=== PATIENT | male | born 1970 | race Caucasian/White ===

== ENCOUNTER 2016-09-09 17:05 | Emergency (ER) | payer MEDICAID ==
[2016-09-09] MEDS ORDERED: KETOROLAC TROMETHAMINE 60 MG/2 ML SDV IM ONE (18:19)
[2016-09-09] MEDS ORDERED: PREDNISONE 20 MG TABLET PO ONE (18:19)
--- NOTE | 2016-09-09 18:25 | ER Document Report ---
ED Neck/Back Problem - General Stated Complaint: FALL BACK PAIN Time seen by provider: 18:20 Mode of Arrival: Ambulatory Information source: Patient TRAVEL OUTSIDE OF THE [place] IN LAST 30 DAYS: No - HPI Patient complains to provider of: Pain, Lower back Onset: Other - Chronic with exacerbation today Where: Outdoors Onset: Chronic Timing: Still present Quality of pain: Achy Severity: Severe Pain Level: 5 Recent injury: Possibly Associated symptoms: Like prior neck/back pain, Radiation to leg. denies: Sweaty Exacerbated by: Movement of trunk Relieved by: Nothing Similar symptoms previously: Yes Notes: Patient is a 46-year-old male presenting to the emergency room complaining of low back pain radiating down his right leg, he has a chronic history of low back pain and in fact has been seen in this emergency room on multiple occasions for similar symptoms, today he states that he was walking his dog in his dog went to 6 Rolled on him causing him to feel a popping sensation in his back and causing him increased pain, patient reports that he has not been in pain management for the past 4 months because he wishes to get off of narcotic medication, he states that he sometimes medications through his primary care provider at [facility], reports initially that he's had 2 back surgeries , and then he reports that he's had 4 back surgeries later in our conversation, when I asked him what type of surgery he has had he simply says "disks", patient denies any bowel or bladder dysfunction, he does report some pain and tingling sensation down the right leg - Related Data Allergies/Adverse Reactions: No Known Allergies Allergy (Verified 02/14/16 10:08) Past Medical History - General Information source: Patient - Social History Smoking Status: Unknown if Ever Smoked Family History: Reviewed & Not Pertinent - Past Medical History Cardiac Medical History: Reports: Hx Hypertension Past Surgical History: Reports: Hx Abdominal Surgery, Hx Orthopedic Surgery - back surgery x 3, right ankle - Immunizations Immunizations up to date: Yes Hx Diphtheria, Pertussis, Tetanus Vaccination: Yes Review of Systems - Review of Systems Constitutional: No symptoms reported EENT: No symptoms reported Cardiovascular: No symptoms reported Respiratory: No symptoms reported Gastrointestinal: No symptoms reported Genitourinary: No symptoms reported Male Genitourinary: No symptoms reported Musculoskeletal: See HPI Skin: No symptoms reported Hematologic/Lymphatic: No symptoms reported Neurological/Psychological: No symptoms reported -: Yes All other systems reviewed and negative Physical Exam - Vital signs Interpretation: Normal - General General appearance: Appears well, Alert - HEENT Head: Normocephalic, Atraumatic Eyes: Normal Pupils: PERRL - Respiratory Respiratory status: No respiratory distress Chest status: Nontender Breath sounds: Normal Chest palpation: Normal - Cardiovascular Rhythm: Regular Heart sounds: Normal auscultation Murmur: No - Abdominal Inspection: Normal Distension: No distension Bowel sounds: Normal Tenderness: Nontender Organomegaly: No organomegaly - Back Back: Normal, Nontender - Extremities General upper extremity: Normal inspection, Nontender, Normal color, Normal ROM , Normal temperature General lower extremity: Normal inspection, Nontender, Normal color, Normal ROM , Normal temperature, Normal weight bearing. No: Shaheen's sign Notes: Distal sensation and motor is intact bilaterally with 2+ DP pulses and good strength in both legs, brisk capillary refill - Neurological Neuro grossly intact: Yes Cognition: Normal Orientation: AAOx4 Mccaskill Coma Scale Eye Opening: Spontaneous Mccaskill Coma Scale Verbal: Oriented Shaunna Coma Scale Motor: Obeys Commands Shaunna Coma Scale Total: 15 Speech: Normal Motor strength normal: LUE, RUE, LLE, RLE Sensory: Normal - Psychological Associated symptoms: Normal affect, Normal mood - Skin Skin Temperature: Warm Skin Moisture: Dry Skin Color: Normal Course - Re-evaluation Re-evalutation: 09/09/16 18:26 Patient with a history of chronic low back pain, has been seen in this emergency room on several occasions, I am told by nursing staff that he is called out at least 4-5 times requesting pain medication since being in the emergency room prior to my evaluation, he has told me that he has not been in pain management for at least 4 months and he has not been taking narcotics for that period of time, however a review of previous charts shows that patient has been saying the same thing for multiple visits previously, and a review of the [place] controlled substances website that he has had multiple narcotic pain medication prescriptions filled, I explained to patient that I would be more than happy to treat his back pain with nonnarcotics today and provided him with a Toradol injection and by mouth steroids, as well as a prescription for Motrin 600 mg and steroids, I attempted to gather further information from patient regarding his back surgeries, which he initially said he had to, then he said he had for later in the conversation, when I asked him what type of surgeries he had he simply said "discs", then he proceeded to sit up in the bed quite quickly as a matter fact, and pointed to all of his extremities and the various areas that he's had surgery, he was moving quite rapidly and did not appear in any pain at that time, he was touching his toes without difficulty pointing to areas that he's had surgery, I once again explained to patient that the emergency room is not the appropriate place to have his chronic low back pain treated and that he would be provided with nonnarcotic medication for the treatment of back pain and he should further follow-up with his primary care provider, orthopedics or neurosurgery, physical therapy, or pain management if his back continues to cause him concern, patient appeared to be unhappy with this explanation and plan but eventually acknowledges understanding Discharge - Discharge Clinical Impression: Low back pain Qualifiers: Chronicity: chronic Back pain laterality: right Sciatica presence: with sciatica Sciatica laterality: sciatica of right side Qualified Code(s): M54.41 - Lumbago with sciatica, right side; G89.29 - Other chronic pain Condition: Stable Disposition: HOME, SELF-CARE Instructions: Low Back Pain ([facility]) Additional Instructions: It is important for you to follow appropriate channels to have your chronic back pain taken care of appropriately. This includes following up with your primary care provider, an orthopedic surgeon specializes in spine or a neurosurgeon, and possibly pain management if these avenues do not help your back pain. Gentle stretching with warm compresses and physical therapy can also help. Return to the emergency room if symptoms worsen or any additional concerns. Prescriptions: Ibuprofen [Motrin 600 Mg Tablet] 600 mg PO TID #30 tablet Methylprednisolone [Medrol Dosepack (4 mg/Tab) 21 Tab/Dosepak] 4 mg PO ASDIR PRN #21 tab.ds.pk PRN Reason:
[2016-09-09 18:39] VITALS: BP 156/118
== END 2016-09-09 18:50 | disposition home or self-care (01) ==
LOC: ER 17:05
DX: M54.41 Lumbago with sciatica, right side (principal); G89.29 Other chronic pain; M54.9 Dorsalgia, unspecified; M54.5 Low back pain; M79.604 Pain in right leg
CPT/HCPCS: 99283; 96372; J1885; J7512

== ENCOUNTER 2019-07-06 13:52 | Emergency (ER) | payer SELFPAY ==
[2019-07-06] MEDS ORDERED: OXYCODONE-ACETAMINOPHEN 5-325 MG TABLET PO ONE ×2 (15:13→20:45)
[2019-07-06] MEDS ORDERED: CYCLOBENZAPRINE HCL 10 MG TABLET PO ONE (15:13)
--- NOTE | 2019-07-06 15:16 | ER Document Report ---
HPI - HPI Context: Patient is a 48-year-old male who presents to the emergency department with a chief complaint of left hip pain. Patient did arrive to the emergency department via EMS. EMS did start an IV and give 30 mg of Toradol. Patient reports this is not helped with his discomfort. Patient reports he does have a history of herniated disc in his back and multiple back and neck surgeries. Patient reports he is not currently having back pain. Patient reports this is all in his hip. Patient reports he is felt a sharp discomfort in his left hip over the past week and today while walking out of his bedroom he felt a significantly increased pain to the left hip. Patient reports this pain does radiate all the way down into his toes on his left leg. Patient reports that sharp and stabbing in nature. Patient reports a week he has been attempting ibuprofen without relief. Patient denies an injury or a fall. Patient reports the pain is significantly worse when he attempts to move at all. <OCTAVIA REYES - Last Filed: 07/06/19 21:32> <SOFY LUGO - Last Filed: 07/07/19 07:49> - HPI Time Seen by Provider: 07/06/19 15:04 Past Medical History - General Information source: Patient - Social History Lives with: Family Family History: Reviewed & Not Pertinent - Past Medical History Cardiac Medical History: Reports: Hx Hypertension Pulmonary Medical History: Reports: None EENT Medical History: Reports: None Neurological Medical History: Reports: None Endocrine Medical History: Reports: None Renal/ Medical History: Reports: None. Denies: Hx Peritoneal Dialysis Malignancy Medical History: Reports None GI Medical History: Reports: None Musculoskeletal Medical History: Reports None Skin Medical History: Reports None Psychiatric Medical History: Reports: None Traumatic Medical History: Reports: None Infectious Medical History: Reports: None Past Surgical History: Reports: Hx Abdominal Surgery, Hx Orthopedic Surgery - back surgery x 3, right ankle - Immunizations Immunizations up to date: Yes Hx Diphtheria, Pertussis, Tetanus Vaccination: Yes <OCTAVIA REYES - Last Filed: 07/06/19 21:32> - General Information source: Patient - Social History Smoking Status: Never Smoker <OSFY LUGO - Last Filed: 07/07/19 07:49> Vertical Provider Document - CONSTITUTIONAL Agree With Documented VS: Yes Exam Limitations: No Limitations General Appearance: No Apparent Distress - INFECTION CONTROL TRAVEL OUTSIDE OF THE [place] IN LAST 30 DAYS: No - HEENT HEENT: Atraumatic, Normocephalic, PERRLA - NECK Neck: Normal Inspection - RESPIRATORY Respiratory: Breath Sounds Normal, No Respiratory Distress - CARDIOVASCULAR Cardiovascular: Regular Rate, Regular Rhythm - GI/ABDOMEN Gastrointestinal: Abdomen Soft, Abdomen Non-Tender, Normal Bowel Sounds - BACK Back: Normal Inspection - MUSCULOSKELETAL/EXTREMETIES Notes: Tenderness noted with palpation to the left iliac crest. There is no tenderness to the femur or lower extremity. Patient is able to wiggle his toes although he does report this induces pain to the left hip. Patient has a strong dorsalis pedis and posterior tibial pulse +2. Patient is unable to move his left leg due to significant pain. - NEURO Level of Consciousness: Awake, Alert, Appropriate - DERM Integumentary: Warm, Dry, No Rash <OCTAVIA REYES - Last Filed: 07/06/19 21:32> Course - Re-evaluation Re-evalutation: 07/06/19 17:24 Patient was brought back to room 31. Patient remains in a reclining chair. Patient reports he is unable to get over from the stretcher as it does hurt too much. Patient was able to sit upright in the chair which did induce pain to the left hip. Patient reports it feels like it is a ball and socket problem in the left hip. Patient continues to deny back pain. Patient did have lumbar midline tenderness. Patient reports he has had hardware in his lower back and there has been no new or worsening symptoms. Patient states once again he is not having back pain. Patient denies numbness or tingling down his leg. Patient denies loss of bowel or bladder. 07/06/19 17:54 I did consult with Dr. Hoff supervising physician who recommends that if the patient cannot bear weight to obtain a CAT scan of the left hip. I will give the patient a dose of medication. CT ordered. 07/06/19 20:00 I did discuss the CT exam results with the patient. Patient reports he has a history of kidney stones and that this feels completely different. Patient reports he feels a sharp or burning discomfort to his left hip. Patient denies urinary symptoms. Patient continues to deny back pain. Patient requesting pain medication. I did discuss the results with Dr. Hoff who will evaluate the patient. 07/06/19 21:32 Report given to Sofy Lugo PA-C who will watch for the results of the MRI. If the MRI is negative per Dr. Hoff the plan is to discharge the patient with Ortho follow-up and crutches. Patient is to not weight-bear until follow-up with orthopedics. - Vital Signs Vital signs: Temp Pulse Resp BP Pulse Ox 88 20 162/82 H 98 07/06/19 14:43 07/06/19 14:43 07/06/19 14:43 07/06/19 14:43 - Diagnostic Test Radiology reviewed: Reports reviewed Radiology results interpreted by me: 07/06/19 15:56 Hip X-Ray 07/06/19 15:12 IMPRESSION: NEGATIVE STUDY OF THE LEFT HIP AND PELVIS. NO EXPLANATION FOR PAIN. <OCTAVIA REYES - Last Filed: 07/06/19 21:32> - Re-evaluation Re-evalutation: MRI results showing severe stenosis at L5 and S1. Degenerative changes otherwise. No cauda equina. No fever. No epidural abscess. Hip MRI is normal. I discussed results with patient and with Dr. Marsh. Patient already has a spinal surgeon in [place] that he has seen previously and had surgery within the past, he states he will call them in the morning with his MRI report. Provided with steroids and pain medication per Dr. Marsh's recommendation. Discussed return precautions. Patient states appreciation and agreement. - Vital Signs Vital signs: Temp Pulse Resp BP Pulse Ox 97.6 F 71 18 136/102 H 91 L 07/06/19 23:47 07/06/19 23:47 07/06/19 23:47 07/06/19 23:47 07/06/19 23:47 - Laboratory Laboratory results interpreted by me: 07/06/19 21:41 Urine Ascorbic Acid 40 H <SOFY LUGO - Last Filed: 07/07/19 07:49> Discharge <OCTAVIA REYES - Last Filed: 07/06/19 21:32> <SOFY LUGO - Last Filed: 07/07/19 07:49> - Discharge Clinical Impression: Left hip pain Lower back pain Qualifiers: Chronicity: unspecified Back pain laterality: left Sciatica presence: with sciatica Sciatica laterality: sciatica of left side Qualified Code(s): M54.42 - Lumbago with sciatica, left side Condition: Stable Disposition: HOME, SELF-CARE Additional Instructions: The imaging shows severe stenosis at L5-S1 probably compressing the L5 nerve root. I suspect this is the cause of your symptoms. We have started you on steroids, apply heat to the area, take pain medication as prescribed, call your orthopedic surgeon in the morning for close follow-up and additional management. Come back if you are worse including new numbness, inability to urinate, losing control of your bowels, fever, or any other concerning symptoms. Prescriptions: Prednisone [Deltasone 10 mg Tablet] 10 mg PO ASDIR PRN #21 tablet PRN Reason: Cyclobenzaprine HCl [Flexeril 5 mg Tablet] 1 - 2 tab PO TID PRN #15 tablet PRN Reason: Oxycodone HCl/Acetaminophen [Percocet 5-325 mg Tablet] 1 - 2 tab PO TID PRN #15 tablet PRN Reason:
--- NOTE | 2019-07-06 15:49 | RADIOLOGY REPORT (SQ) ---
EXAM DESCRIPTION: HIP LEFT AP/LATERAL COMPLETED DATE/TIME: 07/06/2019 3:40 pm REASON FOR STUDY: left hip pain COMPARISON: 02/14/2016. NUMBER OF VIEWS: Two views. TECHNIQUE: AP pelvis and additional frog-leg view of the left hip. LIMITATIONS: None. FINDINGS: MINERALIZATION: Normal. LEFT HIP: No fracture or dislocation. No worrisome bone lesions. No contour deformity. No joint spa ce narrowing. RIGHT HIP: No fracture or dislocation. No worrisome bone lesions. PUBIS AND ISCHIUM: No fracture. PELVIS: No fracture. SACRUM: No fracture or dislocation. No worrisome bone lesions. LOWER LUMBAR SPINE: No fracture or dislocation. No worrisome bone lesions. No significant disc disea se. SOFT TISSUES: No findings. OTHER: No other significant finding. IMPRESSION: NEGATIVE STUDY OF THE LEFT HIP AND PELVIS. NO EXPLANATION FOR PAIN. TECHNICAL DOCUMENTATION: JOB ID: [id number] [employer]- All Rights Reserved Reading location - IP/workstation name: [email or web address]
[2019-07-06] MEDS ORDERED: MORPHINE SULFATE 10 MG/ML INJ IV ONE (17:54)
--- NOTE | 2019-07-06 19:35 | RADIOLOGY REPORT (SQ) ---
EXAM DESCRIPTION: CT PELVIS WITHOUT COMPLETED DATE/TIME: 07/06/2019 6:46 pm REASON FOR STUDY: left hip pain unable to bear weight COMPARISON: None. TECHNIQUE: CT scan of the pelvis performed without intravenous or oral contrast. Images reviewed wi th soft tissue and bone windows. Reconstructed coronal and sagittal MPR images reviewed. All images stored on PACS. All CT scanners at this facility use dose modulation, iterative reconstruction, and/or weight based d osing when appropriate to reduce radiation dose to as low as reasonably achievable (ALARA). [facility]: Dose Right [facility]: CareDose [facility]: Dose Right [facility]: Teradose 4D [facility]: Smart [email or web address] RADIATION DOSE: CT Rad equipment meets quality standard of care and radiation dose reduction techniq ues were employed. CTDIvol: 32.1 mGy. DLP: 1015 mGy-cm. mGy. LIMITATIONS: None. FINDINGS: PELVIC BONES: No acute fracture. No worrisome bone lesions. VISUALIZED SPINE: No acute findings. HIP(S): No acute fracture or dislocation. No worrisome bone lesions. PELVIC SOFT TISSUES: 4-5 mm calcified stone in the distal left ureter above the ureteral vesicular ju nction, no proximal ureteral dilatation is identified. EXTRAPELVIC SOFT TISSUES: No significant findings. OTHER: Moderate lumbar degenerative disc disease. Transitional S1 level. IMPRESSION: No acute osseous findings.4-5 mm calcified stone in the distal left ureter above the ure teral vesicular junction, no proximal ureteral dilatation is identified. TECHNICAL DOCUMENTATION: JOB ID: [id number] Quality ID # [id number]: Final reports with documentation of one or more dose reduction techniques (e.g., Au tomated exposure control, adjustment of the mA and/or kV according to patient size, use of iterative reconstruction technique) 2010 [employer]- All Rights Reserved Reading location - IP/workstation name: [email or web address]
[2019-07-06 21:59] LABS: APPEARANCE,URINE CLEAR; BILIRUBIN,URINE NEGATIVE (NEGATIVE); COLOR,URINE YELLOW; GLUCOSE, URINE NEGATIVE (NEGATIVE); KETONES,URINE NEGATIVE (NEGATIVE); LEUKOCYTE ESTERASE,URINE NEGATIVE (NEGATIVE); NITRITE,URINE NEGATIVE (NEGATIVE); PROTEIN,URINE NEGATIVE (NEGATIVE); URINE SPECIFIC GRAVITY 1.024; UROBILINOGEN,URINE NEGATIVE mg/dL (<2.0)
--- NOTE | 2019-07-06 23:08 | RADIOLOGY REPORT (SQ) ---
EXAM DESCRIPTION: MR LOWER EXTREMITY WITHOUT IV CONTRAST COMPLETED DATE/TME: 07/06/2019 21:13 CLINICAL HISTORY: 48 years, Male, left hip pain, r/o pinched nerve: CLINICAL HISTORY: 48 years Male left hip pain, r/o pinched nerve COMPARISON: CT today's date TECHNIQUE: Multiplanar multisequence MR imaging of the left hip and pelvic regions. FINDINGS: No MR evidence for bone marrow edema or suspicious marrow signal. The distal left ureteral calculus described on CT is less well appreciated on the MR due to technique. No free fluid in the pelvis. The visualized lower lumbar spine and neurovascular bundles are intact and unremarkable. Minor degenerative changes of lower lumbar spine partially seen. Sacroiliac joints appear preserved. No abnormal fluid collections or soft tissue mass. The myofascial planes are preserved IMPRESSION: Minor degenerative changes of the lower lumbar spine is partially seen. Remainder unremarkable TECHNIQUE: Images stored on PACS. LIMITATIONS: None. FINDINGS: IMPRESSION: copyright 2010 [employer]- All Rights Reserved
--- NOTE | 2019-07-06 23:14 | RADIOLOGY REPORT (SQ) ---
EXAM DESCRIPTION: [employer]: MR LUMBAR SPINE WITHOUT IV CONTRAST CLINICAL HISTORY: 48 years Male; left hip pain, r/o herniated disc, pinched nerve TECHNIQUE: Noncontrast MRI lumbar spine. COMPARISON: CT 01/11/2016. No previous MRI. FINDINGS: S1 is somewhat transitional. There are rudimentary ribs at L1. Conus medullaris terminates at L1. There is slight reversal of the normal lumbar lordosis. L1-L2: Minimal bulging. No stenosis. L2-L3: Previous partial laminectomy. Mild disc bulging. Central canal 10 mm. No significant foraminal stenosis. L3-L4: Disc space narrowing with circumferential disc bulging. 3 mm retrolisthesis of L3 on L4, unchanged. No significant central canal stenosis. Canal is 11 mm. Mild foraminal stenosis. L4-L5: Mild disc bulging and osteophytic ridging. Less than 3 mm retrolisthesis of L4 on L5. No central canal stenosis. Mild foraminal stenosis, worse on the right. Mild facet arthropathy. L5-S1: Mild disc bulging and facet arthropathy. Severe left foraminal stenosis, mostly due to facet hypertrophy combined with foraminal disc bulging. This is similar to prior exam. Mild right foraminal stenosis. No suspicious focal bone lesion. Ligaments are intact. No epidural fluid collections. No perivertebral soft tissue edema. No nerve root clumping or thickening. IMPRESSION: 1. Chronic degenerative changes as described; please correlate with distribution of clinical symptoms. 2. Severe left L5-S1 foraminal stenosis, likely compressing left L5 root.
[2019-07-07] MEDS ORDERED: HYDROMORPHONE HCL INJ/PF 2 MG/ML AMPULE IV ONE (01:32)
[2019-07-07] MEDS ORDERED: METHYLPREDNISOLONE INJ 125 MG/2 ML SDV IV ONE (01:33)
[2019-07-07 02:31] VITALS: BP 153/100
== END 2019-07-07 02:10 | disposition home or self-care (01) ==
LOC: ER 13:52
DX: M48.07 Spinal stenosis, lumbosacral region (principal); M54.42 Lumbago with sciatica, left side; M47.9 Spondylosis, unspecified; M25.552 Pain in left hip; I10 Essential (primary) hypertension
CPT/HCPCS: 81001; 73718; 72148; 73502; 72192; J2930; J2270; J1170; 96374; 96375; 99284

== ENCOUNTER 2019-07-10 12:31 | Emergency (ER) | payer SELFPAY ==
[2019-07-10 12:50] VITALS: BP 145/102
[2019-07-10] MEDS ORDERED: HYDROMORPHONE HCL INJ/PF 2 MG/ML AMPULE IM ONE (13:31)
--- NOTE | 2019-07-10 14:07 | ER Document Report ---
HPI - HPI Time Seen by Provider: 07/10/19 13:21 Pain Level: 5 Context: 48-year-old belligerent male presents to the emergency department with acute right low back pain with radiculopathy. He was seen here on July 06 and a lumbar MRI, MRI of the right lower extremity, and pelvic CT were done which showed an L5-S1 nerve root impingement. Patient is in acute pain and says he is not been able to walk since he left the ER. Patient says the pain is burning and constant. Patient is using expletives and was rude to the staff. No urinary retention, bowel incontinence, saddle anesthesia, denies fevers or IV drug use - REPRODUCTIVE Reproductive: DENIES: : Past Medical History - Social History Smoking Status: Former Smoker Family History: Reviewed & Not Pertinent Patient has suicidal ideation: No Patient has homicidal ideation: No - Past Medical History Cardiac Medical History: Reports: Hx Hypertension Renal/ Medical History: Denies: Hx Peritoneal Dialysis Past Surgical History: Reports: Hx Abdominal Surgery, Hx Orthopedic Surgery - back surgery x 3, right ankle - Immunizations Immunizations up to date: Yes Hx Diphtheria, Pertussis, Tetanus Vaccination: Yes Vertical Provider Document - CONSTITUTIONAL Notes: PHYSICAL EXAMINATION: Reviewed vital signs and charting by RN GENERAL: Alert, interacts well. No acute distress. HEAD: Normocephalic, atraumatic. EYES: Pupils equal and round. Extraocular movements intact. ENT: Oral mucosa moist, tongue midline. NECK: Full range of motion. Trachea midline. LUNGS: Clear to auscultation bilaterally, no wheezes, rales, or rhonchi. No respiratory distress. HEART: Regular rate and rhythm. No murmur ABDOMEN: soft, non-tender. No distention. Bowel sounds present EXTREMITIES: Moves all 4 extremities spontaneously. No edema, No cyanosis. 5 out of 5 strength both distally and proximally bilateral lower extremities. 2+ patellar reflexes bilaterally. No clonus. Sensation grossly intact in the bilateral lower extremities. Patient unable to ambulate PSYCH: Normal affect, normal mood. SKIN: Warm, dry, normal turgor. No rashes or lesions noted. - INFECTION CONTROL TRAVEL OUTSIDE OF THE [place] IN LAST 30 DAYS: No Course - Re-evaluation Re-evalutation: 07/10/19 14:08 Patient presents back to the emergency department for acute pain. Patient was belligerent with staff and using expletives. Previous MRI done 4 days ago which showed an L5-S1 right nerve root impingement explaining his symptomology. Patient is demanding something to be done now. I did give the patient Dilaudid 2 mg IM once. No red flags on history or physical exam. I attempted to call the orthopedist on-call, Dr. Aguiar, who said that there are no spine surgeons in [place], he is not a spine surgeon, and the patient would need to coordinate with the spine surgeon to temporarily get an injection. Patient states that he had a surgeries done by Dr. Elliott at [facility]. I called Dr. Elliott's office but they were closed. When I told the patient that patient said that he was actually seen by Dr. Callejas. I called Dr. Callejas office and the triage nurse who I spoke with said that they have no record of this patient and there is no Dr. Ch at that office. There are no red flags and I am discharging this patient. - Vital Signs Vital signs: Temp Pulse Resp BP Pulse Ox 97.8 F 80 18 145/102 H 96 07/10/19 12:48 07/10/19 12:48 07/10/19 12:48 07/10/19 12:48 07/10/19 12:48 Discharge - Discharge Clinical Impression: Acute low back pain Qualifiers: Back pain laterality: left Sciatica presence: with sciatica Sciatica laterality: sciatica of left side Qualified Code(s): M54.42 - Lumbago with sciatica, left side Condition: Stable Disposition: HOME, SELF-CARE Additional Instructions: You were seen here in the emergency department this afternoon for recurrent low back pain. Unfortunately, after speaking with our orthopedic surgeon on-call and attempting to call Dr. Kidd office and Dr. Elliott I was unable to get you direct referral. Your MRI showed a severe nerve root impingement of L5-S1 explaining her symptoms. You have received a shot of pain medication here in the ER. Please attempt to call your orthopedist either when you leave here today or first thing Saturday morning. Please return to the emergency department if you develop complete paralysis of the leg, you develop acute urinary retention, bowel incontinence, or you have complete numbness in your sit bones which is caused saddle anesthesia.
[2019-07-10] MEDS ORDERED: DIAZEPAM 5 MG TABLET PO ONE (14:23)
== END 2019-07-10 15:27 | disposition home or self-care (01) ==
LOC: ER 12:31
DX: G54.1 Lumbosacral plexus disorders (principal); M54.42 Lumbago with sciatica, left side; I10 Essential (primary) hypertension; Z87.891 Personal history of nicotine dependence
CPT/HCPCS: 96374; 99283; J1170